=== PATIENT | male | born 1970 | race Caucasian/White ===

== ENCOUNTER → 2018-04-15 | Outpatient (CLI) | payer BC, OTHER ==
[~2018-04-15] VITALS: Ht 172.7 cm; Wt 82.1 kg
[~2018-04-15] MED LIST: ACYCLOVIR 400400 MG PO; ANDROGEL2.5 G1 TRANSDERM; OXYCONTIN60 MG PO; REMERON 30 MG T30 M1 PO; ROXICODONE30 M1 PO; SYMBICORT160 MCG/4. INH; ZYRTEC10 M5 PO
--- NOTE | ~2018-04-15 | HPC ---
[facility] [address] [place] [address] PAIN MANAGEMENT CONSULTATION Name: HIWOT BERGER [id number] Admission: 04/15/18 Attend Phys: Vinh Diallo MD Discharge: Date of : 68 Report #: [id number] THIS REPORT FOR: //name// CC: GABRIEL Diallo DATE OF SERVICE: 04/15/2018 CHIEF COMPLAINT: Neck pain with radiation to the right neck and arm as well as the occiput. This is a new consultation who is sent to us by Dr. Gabriel Love. The patient is a 48-year-old who was involved in accident in 2013 while at work for [employer]. He was working in [place] going up and down ladders, went up about some ladder steps and then got to the top and could not get down because of severe arm pain, soreness and numbness. He has had pain ever since. He describes it as it feels like nerves being smashed with hammer. 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 He has been unable to work since the event. He is in the process of and just recently received disability benefits as the result of his injuries and is also currently receiving workmen's compensation disability income and is seeking social security disability. He describes his pain on a daily basis as 7/10. Average daily pain is between 5 and 8. This is with medication at high dose, which will be discussed below. His descriptors are continuous, constant, burning, shooting, aching, throbbing, sharp, stabbing. His pain drawing shows pain in the neck and radiation into the anterior and posterior shoulder as far as the deltoid region. It does not radiate further into the arm. He has no numbness, tingling or weakness in the distal distribution of the dermatomes of the cervical spine. He has some pain that radiates up into the occiput. He saw Dr. Tommie Sigala, I believe at [facility] just within the last [address] Sigala performed epidural injection with no improvement. I am not sure why he was then sent to a second pain clinic today unless it was for a second opinion and a discussion related to his medication use. He also reports that he has some chronic abdominal pain related to pancreatitis. He has been placed on Creon for the abdominal pain. MEDICATIONS: AndroGel transdermal daily, Zovirax 3 times daily, mirtazapine 30 mg at bedtime, Zyrtec 10 mg daily, OxyContin 60 mg b.i.d., oxycodone IR 1-2 tablets as needed orally every 4 hours with the maximum of 6 tablets or 180 mg per day and Symbicort aerosol 2 puffs daily. ALLERGIES: PROZAC AND HE GETS RASH FROM TOPICAL ISOPROPYL ALCOHOL. [address] [address] PAIN MANAGEMENT CONSULTATION Name: HIWOT BERGER Room #: REG [facility].#: [id number] Admission: 04/15/18 Attend Phys: Vinh Diallo MD Discharge: Date of : 68 Report #: [id number] PAST MEDICAL HISTORY: Asthma, hypertension, history of colon problems, gastritis. Reports a history of cancer over 20 years ago. SOCIAL HISTORY: He is . His works fulltime. He uses a vapor pen daily, but does not smoke tobacco cigarettes. He does not drink alcohol. Denies use of any addictions or illicit drug use. 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 REVIEW OF SYSTEMS: Positive for fatigue, weakness, chronic headaches, blurred vision, shortness of breath, nosebleeds, rhinitis, wheezing, constipation, abdominal pain and poor sleep with chronic insomnia. PHYSICAL EXAMINATION: GENERAL: Pleasant gentleman, mildly anxious. VITAL SIGNS: Blood pressure was 153/88, heart rate was 71, respirations 16 and O2 sat 98%. He is 5 feet 8 inches, 181 pounds, 27.5 BMI. He is able to move independently from sitting to standing, walks without antalgic features. HEENT: Head is normal. Pupils are equal, round and reactive to light, although was slightly small due to his opioid effects. Mucous membranes are moist. NECK: Reveals diffuse tenderness mostly on the right in the paravertebral muscles including splenius capitis, cervicis. There is some pain that radiates down into the shoulder through the trapezius into the upper arm, deltoid, biceps and triceps. It does not radiate further. Digital Archivist strengths are symmetrical and within normal limits. The same is true for biceps and triceps strength. Sensation to light touch is intact throughout. Deep tendon reflexes are 2+ biceps, triceps and brachioradialis. Reflexes in lower extremity also demonstrate 2+ reflexes at knees without any evidence of hyperreflexia. I could not get ankle jerk reflexes very well. CHEST: Clear. CARDIAC: Rhythm is regular. X-ray reports were reviewed including x-rays of the cervical spine, which demonstrates spondylosis and neural foraminal encroachment. I did not have films to review. IMPRESSION: Chronic cervicalgia with right radiculopathy. He has no motor function loss or other issue to suggest serious compression. RECOMMENDATIONS: Our practice for high-dose opioids truly is full at this moment. We are absorbing nearly 120 patients from retiring colleague. In addition, I would not consider managing opioids for a newer patient above 90 morphine milligram equivalents per day without review by a psychologist, and with someone younger than 50, I think a thorough assessment by an addiction [facility] [address] [place] [address] PAIN MANAGEMENT CONSULTATION Name: ABHIWOT JOSH [id number] Admission: 04/15/18 Attend Phys: Vinh Diallo MD Discharge: Date of : 68 Report #: [id number] specialist at the dose that he is currently taking would be important. I asked him if he knew about the CDC guideline. He was unaware of it. I asked him also if he understood the term morphine milligram equivalents. He was unaware of that term. I asked if he is currently on an agreement with Dr. Love and had been doing testing and he reported to the affirmative. He reports that Dr. Love sees him every 2 weeks. I explained to the patient that the opioid guidelines established through the CDC discussed 3 categories of patients based upon their morphine milligram equivalents; 0-50, low to moderate 15; 50-90, moderate to high and greater than 90, too high with great risk potential for the patient and society due to diversion. The patient is taking 60 mg of long-acting oxycodone twice daily for a total of 120 mg of oxycodone, and in addition, he uses 30 mg of unprotected, non-abuse deterrent, pure OxyIR 30 mg up to 6 tablets per day. This equates to a morphine milligram equivalents of 320 in total, far exceeding by over 120, my highest dose patient. We are trying to taper all of our patients above 90 to a lower opioid dose. I told the patient that I will communicate with Dr. Love who is prescribing this medicine. I would recommend that he begin preparing to taper his medications because it is my opinion that younger patients under the age of 50 (patient is 48) are unlikely to be able to continue receiving such high-dose opioids. I also pointed out to him the discouraging news that despite the fact that he is on a dose twice as high as any patient in my practice at 450 MME, his pain score today is 7/10. The medication is clearly not working effectively and changes will need to be made. He is not interested in further injections. He was unhappy to hear my report today and was discharged shortly thereafter without followup visit. I would refer him locally to the [facility] for cognitive behavioral management of chronic intractable pain. <ELECTRONICALLY SIGNED> By: Vinh Diallo MD 04/19/18 1230 [id number] Vinh Diallo MD /nt
[2018-04-15 13:21] VITALS: BP 153/88
== END ==
LOC: PAIN 07:27
DX: M54.12 Radiculopathy, cervical region (principal); G89.29 Other chronic pain